=== PATIENT | female | born 1935 | race Caucasian/White ===

== ENCOUNTER 2017-09-26 11:39 | Emergency (ER) | payer MEDICARE, BC ==
[2017-09-26 12:04] VITALS: BP 170/63
--- NOTE | 2017-09-26 12:23 | EDM.PDOC ---
ED HPI GENERAL MEDICAL PROBLEM - General Chief Complaint: General Stated Complaint: Shaking of hands Time Seen by Provider: 09/26/17 11:55 Source of Information: Reports: Patient, Family History Limitations: Reports: No Limitations - History of Present Illness INITIAL COMMENTS - FREE TEXT/NARRATIVE: Patient brought here by private vehicle from [facility] for complaint of slurred speech. Upon visiting with patient, she is not here for an acute problem. She has multiple complaints, including poorer mentation/problem solving ability, shaky arms/hands, change in speech. This has apparently been going on for months (at least 3) per patient and family member. When asked why she decided today to come to the ER for it, she was somewhat vague, and essentially said she just didn't know what to do about it anymore. She added that the [facility] didn't know what to do either. No specific area suddenly worsened today. Family member did say that they note patient's speech is a bit more slurry the longer she talks. She does have a very mild right side droop at corner of mouth, family said this has been present for years and is unchanged. No concerns voiced about being safe at home/ambulating. Patient denies having any medication changes. No reported acute illnesses over the past few months. Patient does complain of having chronic bowel problems that have gone on for years. She mentions having loose stools that alternate with constipation. This has not had an acute change. ROS overall unremarkable. Patient was seen here last November for complaint of slurred speech. It improved while she was in the ER and was thought to possibly have had TIA. Clinic did see her afterwards and MRI performed. No acute changes noted. Normal changes associated with general aging identified however. - Related Data Allergies Allergy/AdvReac Type Severity Reaction Status Date / Time No Known Allergies Allergy Verified 12/04/16 13:52 Home Meds: Home Meds Aspirin [Adult Low Dose Aspirin EC] 81 mg PO DAILY 04/27/15 [History] Metoprolol Tartrate [Lopressor] 12.5 mg PO DAILY 04/27/15 [History] Mirtazapine [Remeron] 7.5 mg PO BEDTIME 04/27/15 [History] NIFEdipine [Procardia XL] 30 mg PO DAILY 04/27/15 [History] Pantoprazole Sodium 40 mg PO DAILY 06/29/15 [History] Acetaminophen 500 mg PO QID 12/04/16 [History] Docusate Sodium [Colace] 100 mg PO BID 12/04/16 [History] Lactobacillus Combo No.10 [Probiotic] 1 cap PO BID 12/04/16 [History] Non-Formulary Medication [NF Drug] 1 applic TOP BID PRN 12/04/16 [History] Magnesium Glycinate [Mag Glycinate] 100 mg PO DAILY #90 tablet 09/26/17 [Rx] [place]-3/DHA/Epa/Fish Oil [Fish Oil 500 mg Softgel] 1 each PO BID #180 capsule [Rx] Ubidecarenone [Co Q10] 100 mg PO DAILY #90 capsule 09/26/17 [Rx] Vitamin D3/Vitamin K2 (Mk4) [K2 Plus D3 Tablet] 2 each PO DAILY #180 tablet [Rx] Past Medical History HEENT History: Reports: Cataract, Impaired Vision Other HEENT History: wears glasses Cardiovascular History: Reports: High Cholesterol, Hypertension Gastrointestinal History: Reports: Chronic Constipation, GERD Musculoskeletal History: Reports: Arthritis, Back Pain, Chronic Neurological History: Reports: CVA, TIA - Past Surgical History HEENT Surgical History: Reports: Cataract Surgery Female Surgical History: Reports: Hysterectomy Social & Family History - Tobacco Use Smoking Status *Q: Never Smoker Second Hand Smoke Exposure: No - Caffeine Use Caffeine Use: Reports: Coffee ED ROS GENERAL - Review of Systems Review Of Systems: See Below Constitutional: Reports: No Symptoms HEENT: Reports: No Symptoms Respiratory: Reports: No Symptoms Cardiovascular: Reports: No Symptoms GI/Abdominal: Reports: No Symptoms : Reports: No Symptoms Musculoskeletal: Reports: Other (feels like her arms/legs do not work as well as before, shakier) Skin: Reports: No Symptoms Neurological: Reports: Pre-Existing Deficit (right corner mouth has mild droop) , Change in Speech, Other (Feels like her head is fuzzy. Harder time problem solving, doing math. Feels like her speech is more slurred than usual). Denies : Headache, Numbness, Paresthesia, Syncope Psychiatric: Reports: Anxiety Hematologic/Lymphatic: Reports: No Symptoms ED EXAM, GENERAL - Physical Exam Exam: See Below Exam Limited By: No Limitations General Appearance: Alert, WD/WN, No Apparent Distress, Other (No obvious slurring of speech to examiner or nursing staff. ) Eye Exam: Bilateral Eye: EOMI, PERRL Ears: Normal External Exam, Normal Canal, Hearing Grossly Normal, Normal TMs Nose: Normal Inspection Throat/Mouth: Normal Inspection, Normal Lips, Normal Teeth (has multiple fillings), Normal Gums, Normal Oropharynx, Normal Voice, No Airway Compromise Head: Atraumatic, Normocephalic Neck: Normal Inspection, Supple, Non-Tender, Full Range of Motion. No: Lymphadenopathy (L), Lymphadenopathy (R) Respiratory/Chest: No Respiratory Distress, Lungs Clear, Normal Breath Sounds, No Accessory Muscle Use, Chest Non-Tender Cardiovascular: Normal Peripheral Pulses, Regular Rate, Rhythm, No Edema, No Murmur Peripheral Pulses: 2+: Radial (L), Radial (R) GI/Abdominal: Normal Bowel Sounds, Soft, Non-Tender, No Distention, No Mass (Female) Exam: Deferred Rectal (Female) Exam: Deferred Back Exam: Normal Inspection. No: CVA Tenderness (L), CVA Tenderness (R), Muscle Spasm, Paraspinal Tenderness, Vertebral Tenderness Extremities: Normal Inspection, Normal Range of Motion (strength and range of motion equal bilaterally and within normal limits for age range. ), Non-Tender, No Pedal Edema, Normal Capillary Refill Neurological: Alert, Oriented, CN II-XII Intact, Normal Cognition, Normal Gait ( for age), Normal Reflexes, No Motor/Sensory Deficits, Other (no asymmetry noted other than mild droop right corner mouth which is usual for patient. ) Psychiatric: Anxious Skin Exam: Warm, Dry, Intact, Normal Color, Other (sasha derm noted around ears/ scalp) Lymphatic: No Adenopathy Course - Vital Signs Last Recorded V/S: Last Vital Signs Temp 37.0 C 09/26/17 11:47 Pulse 60 09/26/17 12:03 Resp 18 09/26/17 12:03 BP 170/63 H 09/26/17 12:03 Pulse Ox 100 09/26/17 12:03 - Orders/Labs/Meds Orders: Active Orders 24 hr Category Date Time Status Head wo Cont [CT] Stat Exams 09/26/17 12:22 Taken VITAMIN D 25-HYROXY (D2, D3) [REF] Stat Lab 09/26/17 12:40 Received Labs: Laboratory Tests 09/26/17 09/26/17 09/26/17 Range/Units 12:18 12:40 12:40 WBC 8.9 (4.0-10.2) K/uL RBC 4.58 (3.77-5.09) M/uL Hgb 13.6 (11.7-15.5) g/dL Hct 40.7 (34.0-46.0) % MCV 88.9 (84.0-98.0) fL MCH 29.7 (28.2-33.3) pg MCHC 33.4 (31.7-36.0) g/dL RDW 14.6 H (11.2-14.1) % Plt Count 210 (150-350) K/uL Neut % (Auto) 75.8 (45.0-80.0) % Lymph % (Auto) 19.1 (10.0-50.0) % [place] % (Auto) 4.7 (2.0-14.0) % Eos % (Auto) 0.2 (0.0-5.0) % Baso % (Auto) 0.2 (0.0-2.0) % Neut # (Auto) 6.74 (1.40-7.00) K/uL Lymph # (Auto) 1.70 (0.50-3.50) K/uL [place] # (Auto) 0.42 (0.00-1.00) K/uL Eos # (Auto) 0.02 (0.00-0.50) K/uL Baso # (Auto) 0.02 (0.00-0.20) K/uL Sodium 140 (136-145) mmol/L Potassium 3.3 L (3.5-5.1) mmol/L Chloride 101 (98-107) mmol/L Carbon Dioxide 28.4 (21.0-32.0) mmol/L BUN 13 (7-18) mg/dL Creatinine 0.99 (0.51-1.17) mg/dL Est Cr Clr Drug Dosing TNP Estimated GFR (MDRD) 53 mL/min Glucose 169 H (74-106) mg/dL Calcium 9.7 (8.5-10.1) mg/dL Total Bilirubin 0.5 (0.2-1.0) mg/dL AST 21 (15-37) U/L ALT 16 (12-78) U/L Alkaline Phosphatase 79 (46-116) IU/L Total Protein 8.1 (6.4-8.2) g/dL Albumin 3.9 (3.4-5.0) g/dL Vitamin B12 359 (193-986) pg/mL Specimen Type Urinblad Urine Color Yellow Urine Appearance Clear Urine pH 7.0 (5.0-9.0) Ur Specific [place] 1.015 (1.005-1.030) Urine Protein Negative (NEGATIVE) mg/dL Urine Glucose (UA) Negative (NEGATIVE) mg/dL Urine Ketones Negative (NEGATIVE) mg/dL Urine Occult Blood Trace-intact H (NEGATIVE) Urine Nitrite Negative (NEGATIVE) Urine Bilirubin Negative (NEGATIVE) Urine Urobilinogen 0.2 (0.2-1.0) E.U./dL Ur Leukocyte Esterase Negative (NEGATIVE) Urine RBC 0-5 /HPF Urine WBC 0-5 /HPF Ur Epithelial Cells Rare /LPF Urine Bacteria Rare (NONE TO FEW) /HPF - Radiology Interpretation Free Text/Narrative:: CT of head showed no change when compared to previous imaging studies from last November. - Re-Assessments/Exams Free Text/Narrative Re-Assessment/Exam: CBC/CHem/UA performed. Overall unremarkable. Very small decrease in K. assessment: prison chronic complaints with no acute worsening. May be related to age-related decline and cerebral vascular changes. Recommended stopping the statin for a few months to see if that promotes any improvement of above complaints as statins can cause mental and musculoskeletal compromise. Also recommended to restart her CoQ10. Additional nutritional supplements recommended. Gluten-free diet trial may be helpful in improving patient's intermittent loose stools and constipation. Advised patient to follow up with [facility] regarding all of her concerns. They may continue workup of complaints as needed. Patient and family agreeable with plan. They had no further questions. Departure - Departure Time of Disposition: 13:52 Disposition: Home, Self-Care 01 Condition: Good Clinical Impression: Anxiety about health, Spell of change in speech, General deterioration of health - Discharge Information Prescriptions: Magnesium Glycinate [Mag Glycinate] 100 mg PO DAILY #90 tablet [place]-3/DHA/Epa/Fish Oil [Fish Oil 500 mg Softgel] 1 each PO BID #180 capsule Ubidecarenone [Co Q10] 100 mg PO DAILY #90 capsule Vitamin D3/Vitamin K2 (Mk4) [K2 Plus D3 Tablet] 2 each PO DAILY #180 tablet Referrals: Sheets-Maria Isabel Corbett MD [Primary Care Provider] - Forms: ED Department Discharge Additional Instructions: Observe for any changes. Stop your statin medication for now. Follow up with [facility] /call and make appointment. Follow up sooner in clinic or ER if you develop sudden worsening. - My Orders Last 24 Hours: My Active Orders 09/26/17 12:22 Head wo Cont [CT] Stat 09/26/17 12:40 VITAMIN D 25-HYROXY (D2, D3) [REF] Stat - Assessment/Plan Last 24 Hours: My Active Orders 09/26/17 12:22 Head wo Cont [CT] Stat 09/26/17 12:40 VITAMIN D 25-HYROXY (D2, D3) [REF] Stat
[2017-09-26 13:23] LABS: CHLORIDE,CL 101 mmol/L (98-107); SODIUM,NA 140 mmol/L (136-145)
== END 2017-09-26 14:30 | disposition home or self-care (01) ==
LOC: LL.ED 11:39
DX: F41.9 Anxiety disorder, unspecified (principal); I10 Essential (primary) hypertension; R53.81 Other malaise; Z79.82 Long term (current) use of aspirin; Z79.899 Other long term (current) drug therapy
CPT/HCPCS: 36415; 70450; 80053; 81001; 82306; 82607; 85025; 99283; 99285

== ENCOUNTER 2018-02-08 18:28 | Emergency (ER) | payer MEDICARE, BC ==
--- NOTE | 2018-02-08 19:38 | EDM.PDOC ---
ED HPI GENERAL MEDICAL PROBLEM - General Chief Complaint: General Stated Complaint: HTN, LETHARGY Time Seen by Provider: 02/08/18 18:57 Source of Information: Reports: Patient, Family History Limitations: Reports: No Limitations - History of Present Illness INITIAL COMMENTS - FREE TEXT/NARRATIVE: Patient sent here [facility] for complaint of increased BP readings 170s/70s- 80s that were noted recently. Patient has had long standing issues with slower mentation/increased overall fatigue/and more slurred speech that have been present for approximately 6 months. She was seen in our ER on September 26 for these same problems (however no BP issues noted at Nov visit) At that time she was supposed to withhold the statin she was on to see if that was helpful. No obvious change was noted. No other health changes reported. No headaches/vision change/HEENT changes. No cough/sob/CV changes. No GI changes. Patient does not report any appetite or weight variations. No complaints other than a rash in the [place] area that has been present for "two years" that she has been using [place] powder as a treatment. No neuro changes. Has had mild right sided corner of mouth droop that is not changed per daughter. Has had TIAs in past. No med changes reported. No other changes reported. - Related Data Allergies Allergy/AdvReac Type Severity Reaction Status Date / Time No Known Allergies Allergy Verified 12/04/16 13:52 Home Meds: Home Meds Aspirin [Adult Low Dose Aspirin EC] 81 mg PO DAILY 04/27/15 [History] Metoprolol Tartrate [Lopressor] 12.5 mg PO DAILY 04/27/15 [History] Mirtazapine [Remeron] 15 mg PO BEDTIME 04/27/15 [History] NIFEdipine [Procardia XL] 30 mg PO DAILY 04/27/15 [History] Pantoprazole Sodium 40 mg PO DAILY 04/27/15 [History] Acetaminophen 500 mg PO QID 12/04/16 [History] Docusate Sodium [Colace] 100 mg PO BID 12/04/16 [History] Lactobacillus Combo No.10 [Probiotic] 1 cap PO BID 12/04/16 [History] Non-Formulary Medication [NF Drug] 1 applic TOP BID PRN 12/04/16 [History] Clotrimazole [Lotrimin AF 1% Crm] 30 gm TOP BID #1 tube 02/08/18 [Rx] Magnesium Glycinate [Mag Glycinate] 100 mg PO BID #60 tablet 02/08/18 [Rx] Potassium Chloride 10 meq PO DAILY #30 cap.er 02/08/18 [Rx] Simvastatin [Zocor] 20 mg PO BEDTIME 02/08/18 [History] Ubidecarenone [Coq-10] 100 mg PO DAILY #30 capsule 02/08/18 [Rx] Vitamin B Complex [Complex B-100] 1 each PO DAILY #30 tablet.er 02/08/18 [Rx] Vitamin D3/Vitamin K2 [D3 + K2 Dots 1,000 Unit] 3 each PO DAILY #90 tab.rapdis 02/08/18 [Rx] Past Medical History HEENT History: Reports: Cataract, Impaired Vision Other HEENT History: wears glasses Cardiovascular History: Reports: High Cholesterol, Hypertension Gastrointestinal History: Reports: Chronic Constipation, GERD Musculoskeletal History: Reports: Arthritis, Back Pain, Chronic Neurological History: Reports: CVA, TIA Hematologic History: Reports: Other (See Below) (Noted to have low Mg/Vitamin D , low normal B12) - Past Surgical History HEENT Surgical History: Reports: Cataract Surgery Female Surgical History: Reports: Hysterectomy Social & Family History - Tobacco Use Smoking Status *Q: Never Smoker Second Hand Smoke Exposure: No - Caffeine Use Caffeine Use: Reports: Coffee ED ROS GENERAL - Review of Systems Review Of Systems: See Below Constitutional: Reports: Fatigue. Denies: Fever, Diaphoresis, Decreased Appetite, Weight Loss, Weight Gain HEENT: Reports: No Symptoms (no acute changes) Respiratory: Reports: No Symptoms (no acute changes) Cardiovascular: Reports: Blood Pressure Problem (some elevation recently noted) . Denies: Dyspnea on Exertion, Edema, Lightheadedness, Palpitations, Syncope GI/Abdominal: Reports: No Symptoms (no acute changes) : Reports: No Symptoms Skin: Reports: Other (rash in [place]-area. No drainage. Mildly irritating) Neurological: Reports: Other (long standing mild corner droop right corner mouth. No acute changes otherwise) Psychiatric: Reports: No Symptoms ED EXAM, GENERAL - Physical Exam Exam: See Below Exam Limited By: No Limitations General Appearance: Alert, WD/WN, No Apparent Distress Eye Exam: Bilateral Eye: EOMI, PERRL Ears: Normal External Exam Nose: No: Nasal Deformity, Nasal Swelling, Nasal Drainage Throat/Mouth: Normal Lips, Normal Voice, No Airway Compromise Head: Atraumatic, Normocephalic Neck: Normal Inspection, Supple Respiratory/Chest: No Respiratory Distress, Lungs Clear, Normal Breath Sounds, No Accessory Muscle Use Cardiovascular: Regular Rate, Rhythm, No Edema, No Murmur GI/Abdominal: Normal Bowel Sounds, Soft, Non-Tender, No Distention (Female) Exam: Other (rash noted in groin area, confluent, mildly red. No scaling/flaking/sattelite lesions/pustules/vesicle. ) Rectal (Female) Exam: Deferred Back Exam: No: CVA Tenderness (L), Paraspinal Tenderness Extremities: Normal Inspection, Normal Range of Motion (for age), Non-Tender, Normal Capillary Refill Neurological: Alert, Oriented, Normal Cognition, Normal Gait (for age), No Motor /Sensory Deficits Psychiatric: Normal Affect, Normal Mood Skin Exam: Warm, Dry, Other (see above) Course - Vital Signs Last Recorded V/S: Last Vital Signs Temp 36.3 C 02/08/18 18:29 Pulse 70 02/08/18 19:44 Resp 16 02/08/18 18:46 BP 170/79 H 02/08/18 19:44 Pulse Ox 100 02/08/18 18:46 - Orders/Labs/Meds Orders: Active Orders 24 hr Category Date Time Status MAGNESIUM [CHEM] Routine Lab 02/08/18 19:24 Ordered UA W/MICROSCOPIC [URIN] Stat Lab 02/08/18 19:10 Ordered Labs: Laboratory Tests 02/08/18 02/08/18 02/08/18 Range/Units 19:00 19:00 19:10 WBC 7.5 (4.0-10.2) K/uL RBC 4.39 (3.77-5.09) M/uL Hgb 12.9 (11.7-15.5) g/dL Hct 39.2 (34.0-46.0) % MCV 89.3 (84.0-98.0) fL MCH 29.4 (28.2-33.3) pg MCHC 32.9 (31.7-36.0) g/dL RDW 14.8 H (11.2-14.1) % Plt Count 192 (150-350) K/uL Neut % (Auto) 60.5 (45.0-80.0) % Lymph % (Auto) 29.9 (10.0-50.0) % [place] % (Auto) 7.9 (2.0-14.0) % Eos % (Auto) 1.6 (0.0-5.0) % Baso % (Auto) 0.1 (0.0-2.0) % Neut # (Auto) 4.50 (1.40-7.00) K/uL Lymph # (Auto) 2.23 (0.50-3.50) K/uL [place] # (Auto) 0.59 (0.00-1.00) K/uL Eos # (Auto) 0.12 (0.00-0.50) K/uL Baso # (Auto) 0.01 (0.00-0.20) K/uL Sodium 141 (136-145) mmol/L Potassium 3.3 L (3.5-5.1) mmol/L Chloride 103 (98-107) mmol/L Carbon Dioxide 30.1 (21.0-32.0) mmol/L BUN 14 (7-18) mg/dL Creatinine 1.28 H (0.51-1.17) mg/dL Est Cr Clr Drug Dosing 28.11 mL/min Estimated GFR (MDRD) 40 mL/min Glucose 109 H (74-106) mg/dL Calcium 9.1 (8.5-10.1) mg/dL Total Bilirubin 0.3 (0.2-1.0) mg/dL AST 21 (15-37) U/L ALT 15 (12-78) U/L Alkaline Phosphatase 82 (46-116) IU/L Total Protein 8.1 (6.4-8.2) g/dL Albumin 3.8 (3.4-5.0) g/dL Specimen Type Urinvoid Urine Color Light yellow Urine Appearance Clear Urine pH 7.0 (5.0-9.0) Ur Specific [place] 1.015 (1.005-1.030) Urine Protein Negative (NEGATIVE) mg/dL Urine Glucose (UA) Negative (NEGATIVE) mg/dL Urine Ketones Negative (NEGATIVE) mg/dL Urine Occult Blood Trace-lysed H (NEGATIVE) Urine Nitrite Negative (NEGATIVE) Urine Bilirubin Negative (NEGATIVE) Urine Urobilinogen 0.2 (0.2-1.0) E.U./dL Ur Leukocyte Esterase Negative (NEGATIVE) Urine RBC 0-5 /HPF Urine WBC Not seen /HPF Ur Epithelial Cells Not seen /LPF Urine Bacteria Rare (NONE TO FEW) /HPF Meds: Medications Discontinued Medications Generic Name Dose Route Start Last Admin Trade Name Kristopherq PRN Reason Stop Dose Admin Clotrimazole 1 gm 02/08/18 19:32 02/08/18 19:43 Lotrimin Af 1% Crm TOP 02/08/18 19:33 1 applic ONETIME ONE Administration Metoprolol Tartrate 12.5 mg 02/08/18 19:33 02/08/18 19:44 Lopressor PO 02/08/18 19:34 12.5 mg ONETIME ONE Administration - Re-Assessments/Exams Free Text/Narrative Re-Assessment/Exam: 02/08/18 19:55 CBC/Chem/UA performed. Mild decrease in K but otherwise overall unremarkable. Review of previous labs shows low Vit D and Mg levels as well as now normal B12. Exam overall non-focal. Patient is unchanged in appearance when compared to her visit in August. Plan at this time is to supplement with Mg/D/K/B complex. Will have her go to BID dosing of Metoprolol. Started on Lotrimin for groin rash with appears to be fungal in nature. Will have the [facility] perform BID blood pressure checks and keep a log that the patient can show to her primary provider at follow up . Recommend follow up appointment next Monday or the following week to review her concerns as well as BP readings. Patient and daughter are in agreement with plan. Departure - Departure Time of Disposition: 20:01 Disposition: Home, Self-Care 01 Condition: Good Clinical Impression: Hypomagnesemia, Low vitamin D level, Hypokalemia, Charisma rash of groin Hypertension Qualifiers: Hypertension type: unspecified Qualified Code(s): I10 - Essential (primary) hypertension Fatigue Qualifiers: Fatigue type: chronic, unspecified Qualified Code(s): R53.82 - Chronic fatigue , unspecified - Discharge Information Prescriptions: Clotrimazole [Lotrimin AF 1% Crm] 30 gm TOP BID #1 tube Magnesium Glycinate [Mag Glycinate] 100 mg PO BID #60 tablet Ubidecarenone [Coq-10] 100 mg PO DAILY #30 capsule Vitamin B Complex [Complex B-100] 1 each PO DAILY #30 tablet.er Vitamin D3/Vitamin K2 [D3 + K2 Dots 1,000 Unit] 3 each PO DAILY #90 tabevangelista Referrals: Nanette Parra NP [Primary Care Provider] - Forms: ED Department Discharge Additional Instructions: Increase Metoprolol to 12.5mg TWICE a day (instead of once a day) Take BP daily both morning and night for the next week and keep a log. Use antifungal cream you received in ER twice daily for 3-4 weeks until rash clears. Take supplements as prescribed. You have low magnesium and Vitamin D levels. You B12 level is low normal. This may be part of the problem you are having with fatigue. Follow up in one week with [facility] for recheck to see how blood pressure is doing and how rash is doing. Follow up otherwise as needed if there are problems Discuss with them if any further evaluation is needed for the gradually worsening speech issues. - My Orders Last 24 Hours: My Active Orders 02/08/18 19:10 UA W/MICROSCOPIC [URIN] Stat 02/08/18 19:24 MAGNESIUM [CHEM] Routine - Assessment/Plan Last 24 Hours: My Active Orders 02/08/18 19:10 UA W/MICROSCOPIC [URIN] Stat 02/08/18 19:24 MAGNESIUM [CHEM] Routine
[2018-02-08] MEDS: Clotrimazole 1% Crm 30 GM Tube TOP ONE (19:43)
[2018-02-08] MEDS: Metoprolol Tartrate 25 MG Tab PO ONE (19:44)
[2018-02-08 22:09] VITALS: BP 174/81
== END 2018-02-08 20:20 | disposition home or self-care (01) ==
LOC: LL.ED 18:28
DX: I10 Essential (primary) hypertension (principal); R53.82 Chronic fatigue, unspecified; E83.42 Hypomagnesemia; R79.89 Other specified abnormal findings of blood chemistry; E87.6 Hypokalemia; B37.2 Candidiasis of skin and nail; Z79.82 Long term (current) use of aspirin; Z79.899 Other long term (current) drug therapy; E78.00 Pure hypercholesterolemia, unspecified
CPT/HCPCS: 36415; 80053; 81001; 83735; 85025; 99283; A9270-GY